=== PATIENT | female | born 1945 | race Caucasian/White ===

== ENCOUNTER → 2017-03-29 09:50 | Outpatient (CLI) | payer MEDICARE, OTHER ==
[~2017-03-29] VITALS: Ht 162.6 cm; Wt 71.8 kg
[~2017-03-29 09:50] MED LIST: LEVOXYL125 MCG PO; PEPCID20 MG PO; ULTRAM50 MG PO
[2017-03-29 10:49] LABS: HEMATOCRIT 41.8 % (36.0-48.0); HEMOGLOBIN 13.7 g/dL (12-16); MCH 30.4 pg (26.0-34.0); MCHC 32.8 g/dL (31.0-37.0); MCV 92.9 fL (80.0-100.0); MEAN PLATELET VOLUME 10.1 fL (7.4-10.4); RBC 4.5 10x6/uL (4.00-5.40); RDW 13.1 % (11.5-14.5); WBC 8.5 10x3/uL (4.8-10.8)
[2017-03-29 11:04] VITALS: BP 135/74; Ht 162.6 cm; Wt 71.8 kg
--- NOTE | 2017-03-29 15:57 | NUR ---
1545 DISCHARGE INSTRUCTIONS COMPLETE. NO PRESCRIPTIONS GIVEN. SHE HAS NO QUESTIONS OR CONCERNS AT THIS TIME. ESCORTED OUT BY CHUCKIE DENNIS.
== END | disposition home or self-care (01) ==
LOC: D.MRI 09:50 → D.OPS 09:50 → D.MRI 13:00
PROVIDERS: Anesthesiology
DX: M48.06 Spinal stenosis, lumbar region (principal); F17.200 Nicotine dependence, unspecified, uncomplicated; G62.9 Polyneuropathy, unspecified; E03.9 Hypothyroidism, unspecified; Z01.812 Encounter for preprocedural laboratory examination

== ENCOUNTER 2017-06-18 12:50 | Outpatient (CLI) | payer MEDICARE, OTHER ==
[2017-03-29 11:04] VITALS: BMI 27.1
--- NOTE | 2017-06-18 14:16 | NUR ---
1305 TO 2510 PER WHEELCHAIR FOR PROLIA INJECTION. Merry LARA R.N. 1323 PROLIA 60MG/ML SUBCUTANEOUS TO LEFT ARM. PT AWAKE & ALERT. PT HISTORY BEGUN. Merry LARA R.NDennis 1400 PT HISTORY OBTAINED. NO COMPLAINTS OR REQUESTS VOICED. PT AWAKE & ALERT. GIVEN DISCHARGE INFORMATION INCLUDING, HANDOUTS FOR PROLIA LISTING SIDE EFFECTS TO WATCH FOR. PT VOICED UNDERSTANDING. TO FRONT ENTRANCE PER WHEELCHAIR BY THIS NURSE. HOME PER SELF/OWN VEHICLE. Merry LARA R.N.
== END 2017-06-18 14:00 | disposition home or self-care (01) ==
LOC: D.OPS 12:50
DX: M81.0 Age-related osteoporosis without current pathological fracture (principal)

== ENCOUNTER 2017-12-10 09:42 | Outpatient (CLI) | payer OTHER ==
[~2017-12-10] VITALS: Ht 157.5 cm; Wt 70.0 kg
[2017-12-10 10:33] VITALS: BP 116/80; Ht 157.5 cm; Wt 70.0 kg
== END 2017-12-10 10:38 | disposition home or self-care (01) ==
LOC: D.OPS 09:42
DX: M81.0 Age-related osteoporosis without current pathological fracture (principal)